=== PATIENT | male | born 1975 | race Caucasian/White ===

== ENCOUNTER 2021-02-02 15:15 | Emergency (ER) | payer SELFPAY ==
[2021-02-02] MEDS ORDERED: Acetaminophen 325 MG TAB ONE (17:34)
[2021-02-03 19:07] LABS: SARS-CoV-2 PCR by NAA DETECTED (NotDetected)
== END 2021-02-02 18:20 | disposition home or self-care (01) ==
LOC: MADERS 15:15
DX: U07.1 COVID-19 (principal); J02.9 Acute pharyngitis, unspecified
CPT/HCPCS: 87081; 87430; 99283; U0003; U0005